=== PATIENT | male | born 1965 | race Caucasian/White ===

== ENCOUNTER 2020-07-03 09:27 | Inpatient (IN) | payer BC ==
[~2020-07-03] VITALS: Ht 190.5 cm; Wt 145.3 kg
[2020-11-17] VITALS (7 sets, daily range): BP systolic 121–150; BP diastolic 63–94; PULSE 49–76; TEMP 97.7–98.5
[2020-11-17] MEDS ORDERED: CYMBALTA 60MG60 MG PO (07:46)
[2020-11-17] MEDS ORDERED: NORVASC 10MG10 MG PO (07:46)
[2020-11-17] MEDS ORDERED: LANOXIN 0.25M0.25 MG PO (07:46)
[2020-11-17] MEDS ORDERED: COZAAR100 MG PO (07:46)
[2020-11-17] MEDS ORDERED: ASPIRIN 81M81 MG/TA2 PO (07:47)
[2020-11-17] MEDS ORDERED: THEO-DUR 3300 MG/TAB PO (07:47)
[2020-11-17] MEDS ORDERED: CELEBREX 200MG200 MG PO (07:47)
--- NOTE | 2020-11-17 08:22 | NUR ---
The patient ambulated back to [facility] independently using a steady gait and appeared to tolerate the activity well. Vital signs obtained. Consent signed. 18G IV Started in left hand with one stick, LR infusing without difficulty. Assessment completed. brought back to be at his bedside. Scrub to left knee completed. SOLANGE hose applied to right leg. Call light is within reach. Will continue to monitor the patient.
--- NOTE | 2020-11-17 13:15 | NUR ---
PT ADMITTED FROM PACU. PT IS AXOX4. PT'S VSS. PT HAS CALL LIGHT AND IS RESTING IN BED. BEDSIDE. PT STILL NUMB IN BLE. PT ABLE TO MOVE FEET SOME BUT UNABLE TO WIGGLE TOES. WILL CONTIUE TO LINDA.
--- NOTE | 2020-11-17 20:00 | NUR ---
PT AMBULATES IN HALLWAY WITH PCT AND WALKER. DOES WELL. HAS FAITH/DRSG TO LEFT KNEE, D/I. SL TO LEFT HAND, FLUSHES WELL. VOIDING WITHOUT PROBLEM.
--- NOTE | 2020-11-17 21:29 | NUR ---
MEDICATED WITH HS MEDS INCLUDING OXYCODONE 10MG PO FOR PAIN 6/10 TO LEFT KNEE.
[2020-11-17] MEDS ORDERED: PROVENTIL0.09 MG/A1 IH (21:59)
[2020-11-18] VITALS (7 sets, daily range): BP systolic 125–173; BP diastolic 70–86; PULSE 62–78; TEMP 97.9–98.5
--- NOTE | 2020-11-18 00:10 | NUR ---
SCHEDULED ES TYLENOL AND ANCEF IV GIVEN. PT REPORTS MINIMAL PAIN TO KNEE.
--- NOTE | 2020-11-18 02:15 | NUR ---
PT HUNGRY, ASSISTED TO EDGE OF BED, PROVIDED SNACK, REFUSES PAIN MEDS AT THIS TIME.
--- NOTE | 2020-11-18 06:00 | NUR ---
PT UNCOMFORTABLE, GIVEN SCHEDULED AM MEDS INCLUDING OXYCODONE 10MG PO FOR PAIN.
--- NOTE | 2020-11-18 07:00 | NUR ---
PT RESTING IN BED. PT DENIES NEEDS AT THIS TIME. WILL CONTINUE TO MONITOR.
[2020-11-18 07:07] LABS: HEMATOCRIT 37.8 % (42.0-52.0)
--- NOTE | 2020-11-18 09:23 | NUR ---
Initial visit; Patient and his thanked [employer] for looking in on him and offering encouragement and God's blessings. [employer] thanked patient for choosing our hospital and wished him a rapid and thorough recovery.
--- NOTE | 2020-11-18 12:06 | NUR ---
DRESSING CHANGED ON L KNEE.
--- NOTE | 2020-11-18 15:05 | NUR ---
SE met with patient to discuss discharge plan. Patient lives at home with his [employer] ([phone]) in [place], [place]. Patient reports he is fully independent with activities of daily living and uses no medical equipment to assit with mobility. Patient see's Dr. Carias and uses [facility] for perscriptions. Patient does not have a DPOA-HC established and does not wish to right now. SW educated patient that his is his legal DPOA-HC. Patient plans to DC home when ready. *Discharge plan: Home*
--- NOTE | 2020-11-18 20:00 | NUR ---
PATIENT IS ALERT AND ORIENTED X4. PATIENT WENT FOR WALK. STEADY GAIT, AMBULATED 200 FEET. PATIENT AT BEDSIDE. PATIENT HAS IV TO LEFT HAND AND AQUACELL DRESSING TO LEFT KNEE. PATIENT HAS ON TEDS AND SCD'S BILATERALLY. POTENTIAL DISCHARGE IN AM. PATIENT DENIES FURTHER NEEDS AT THIS TIME. HEAD TO TOE ASSESSMENT COMPLETE. CALL LIGHT WITHIN REACH.
[2020-11-19 03:31] VITALS: BP 140/65; PULSE 63; TEMP 98
--- NOTE | 2020-11-19 06:21 | NUR ---
PATIENT DID WELL THROUGHOUT NIGHT. AMBULATED ABOUT 200 FEET. GIVEN PAIN MEDS PER ORDERS. SCDS BILATERALLY AND ICE TO KNEE. WILL REPORT TO DAY SHIFT.
[2020-11-19 07:41] VITALS: BP 152/70; PULSE 69; TEMP 98.7
--- NOTE | 2020-11-19 11:15 | NUR ---
10 AM: Corbin sent DME to [facility] for a bariatric walker. Corbin faxed facesheet, PT eval,script to Pb. Corbin called them to see if they could deliver to the pt by 1:30 pm. They informed Sw that they would call me if they could before 1:30. Corbin is waiting on return call. Corbin will call them at 12:45 if i havent heard anthing from them. Corbin salinas had to call and confirm missing documents that [facility] was asking me to send face to face notes, even though i faxed over PT eval. She informed that they are not and its on there side. No other needs at this time. 11:20 pm: Corbin was informed that they did not recieved all of the documents. SW to refax over documents. They only recieved 3 pages.
[2020-11-19 12:09] VITALS: BP 156/75; PULSE 59; TEMP 98.6
--- NOTE | 2020-11-19 13:36 | NUR ---
sw sent PPW and word was recieved that the FWW will be delivered. Nothing Follows.
[2020-11-19] MEDS ORDERED: ASPI325T6 PO (14:28)
[2020-11-19] MEDS ORDERED: ULTRAM 50MG TAB50 MG PO (14:29)
[2020-11-19] MEDS ORDERED: ROXICODONE 55 MG/TAB PO (14:29)
[2020-11-19] MEDS ORDERED: SENOKOT S 50 MG1 TAB PO (14:30)
--- NOTE | 2020-11-19 14:57 | NUR ---
FWW delivered at 1:30 PM.
== END 2020-11-19 16:15 | disposition home or self-care (01) | DRG 470 ==
LOC: SURG 08-19 10:15 → INPTSU 11-17 07:11 → SURG 11-17 10:15
PROVIDERS: ADMIT Orthopaedic Surgery
PROC: 0SRC0J9 Replacement of Right Knee Joint with Synthetic Substitute, Cemented, Open Approach (ICD-10-PCS; principal; 2020-11-17 10:30)
DX: M17.12 Unilateral primary osteoarthritis, left knee (principal); Z79.82 Long term (current) use of aspirin
CPT/HCPCS: A9284; C1713; C1776; J0690; J2250; J2704; J3010; J7030; J7120

== ENCOUNTER 2021-03-23 05:44 | Inpatient (IN) | payer BC ==
[2021-03-23] VITALS (11 sets, daily range): BP systolic 112–182; BP diastolic 62–98; PULSE 57–100; TEMP 97.3–98.8
[~2021-03-23] VITALS: Ht 188 cm; Wt 143.0 kg
[~2021-03-23 05:44] MED LIST: ASPI325T6 PO; ASPIRIN 81M81 MG/TA2 PO; CELEBREX 200MG200 MG PO; COZAAR100 MG PO; CYMBALTA 60MG60 MG PO; LANOXIN 0.25M0.25 MG PO; NORVASC 10MG10 MG PO; PROVENTIL0.09 MG/A1 IH; ROXICODONE 55 MG/TAB PO; SENOKOT S 50 MG1 TAB PO; THEO-DUR 3300 MG/TAB PO; ULTRAM 50MG TAB50 MG PO
--- NOTE | 2021-03-23 05:55 | NUR ---
56 Year old male admitted to [facility] bay #6 via ambulation, no use of assistive devices. Patient present with a mild R sided limp and states it is because his knee is stiff. is in waiting room. Medications and HX completed. Physical assessment completed. Procedure verified and consent signed. First and last name + verified with patient. Vitals obatined. Patient voided prior to changing into a clean gown. Warm blanket provided. Non-slip socks are on. Greg's applied to non-operative side. Operative side scrubbed and marked. IV started in R hand on first attempt with 20G. IVF infusing without difficulty. PO medications administered. was escorted to his private bay and provided patient privacy code. Patient and his denied having any further questions or concerns. Call shook is at bedside. Side rails x2. Will continue to monitor per orders.
--- NOTE | 2021-03-23 07:00 | NUR ---
Patient was taken back to the OR at this time.
--- NOTE | 2021-03-23 11:00 | NUR ---
PATIENT ADMITED INTO ROOM 331 POST OP. ORIENTED BUT A LITTLE DROWSY. VSS. C/O MOD PAIN IN RLE AND WAS GIVEN PAIN MEDS IN PACU BEFORE COMING UP TO FLOOR. RTK DRESSING IS CD&I WITH ACEWRAP AND ICE PACK INPLACE. TEDS TO LLE. SCD'S TO BLE. POSITIVE PEDAL PULSES TO BLE. NO C/O N/V. LIQUIDS AT BEDSIDE. IV FLUIDS INFUSING VIA PUMP INTO RIGHT HAND IV. HEAD TO TOE ASSESSMENT COMPLETE. AT BEDSIDE. ORIENTED TO ROOM. CALL LIGHT IN REACH.
--- NOTE | 2021-03-23 21:37 | NUR ---
OXYCODONE 10MG PO GIVEN FOR RT KNEE PAIN.
--- NOTE | 2021-03-23 22:15 | NUR ---
ASSISTED WITH AMBULATION FROM ROOM TO NURSES DESK AND BACK, DOES WELL WITH WALKER AND SUPERVISION. RATES PAIN TO RT KNEE 10/04. IVF TO RT HAND INFUSING WITHOUT PROBLEM. BULKY DRSG TO RT KNEE, HAS SCD TO LEFT LEG. HAD TRAMADOL EARLIER FOR PAIN WITHOUT RELIEF. REFUSES MORPHINE IV.
--- NOTE | 2021-03-24 01:27 | NUR ---
REPORTS OF MODERATE PAIN 7/10 AFTER SCHEDULED TYLENOL. PRN TO GIVEN AT THIS TIME. ASSISTED PATIENT BACK INTO BED. ICE TO R KNEE. CALL LIGHT WITHIN REACH.
[2021-03-24 04:18] VITALS: BP 163/87; PULSE 91; TEMP 97.5
[2021-03-24 06:53] LABS: HEMATOCRIT 38.7 % (42.0-52.0); HEMOGLOBIN 13.6 g/dl (13.5-18.0)
[2021-03-24 07:48] VITALS: BP 156/81; PULSE 90; TEMP 98.3
[2021-03-24 11:43] VITALS: BP 152/71; PULSE 82; TEMP 97.6
[2021-03-24 15:54] VITALS: BP 135/82; PULSE 87; TEMP 97.7
--- NOTE | 2021-03-24 18:37 | NUR ---
RECEIVED CHANGE OF SHIFT REPORT FROM DAY SHIFT RN.
[2021-03-24 22:16] VITALS: BP 130/75; PULSE 79; TEMP 98.3
[2021-03-24 23:46] VITALS: BP 129/70; PULSE 77; TEMP 98.1
--- NOTE | 2021-03-25 02:46 | NUR ---
PATIENT WATCHING TV, STATING HE HAS HAS NOT BEEN ABLE TO SLEEP SINCE ADMISSION, EXPECTS TO DISCHARGE TOMORROW. UP TO AMB WITH MIN TO NO ASSIST. DENIES CHEST PAIN/SOA AND DENIES NUMBNESS/TINGLING TO EXTREMITIES. ICE TO RIGHT KNEE NEEDED. WEARS COMPRESSION STOCKINGS PER D.O.
[2021-03-25 04:07] VITALS: BP 133/79; PULSE 92; TEMP 98.6
[2021-03-25] MEDS ORDERED: ASPI325T6 PO (07:04)
[2021-03-25] MEDS ORDERED: NORCO 325 MG-7.1 TAB PO (07:04)
[2021-03-25] MEDS ORDERED: ROXICODONE 55 MG/TAB PO (07:05)
[2021-03-25] MEDS ORDERED: SENOKOT S 50 MG1 TAB PO (07:05)
--- NOTE | 2021-03-25 07:11 | NUR ---
CHANGE OF SHIFT REPORT GIVEN TO DAY SHIFT RNTAMIA.
[2021-03-25 08:34] VITALS: BP 145/76; PULSE 93; TEMP 97.9
--- NOTE | 2021-03-25 11:00 | NUR ---
PT MET CRITERIA FOR DISCHARGE, VSS. PAIN CONTROLLED, DRESSING REMAINS C,D,I. IV REMOVED WITHOUT COMPLICATIONS, CATHETER INTACT. DISCHARGE INSTRUCTIONS REVIEWED, PT VERBALIZED UNDERSTANDING. PT AWARE OF F/U APPT AND OF PRESCRIPTIONS TO AQUATIC SCIENTIST. PT AWARE OF PHYSICAL THERAPY APPT TOMORROW. PT DC TO HOME VIA WHEELCHAIR ACCOMPANIED BY SERVICE LEARNING COORDINATOR.
--- NOTE | 2021-03-25 13:37 | NUR ---
tank worker met with patient to discuss discharge planning. Patient plans to discharge home today with his spouse and states that he has all needed durable medical equipment and outpatient therapies arranged. Patient denies unmet needs at this time.
== END 2021-03-25 11:03 | disposition home or self-care (01) | DRG 470 ==
LOC: SDCO 05:44 → SURG 09:21 → INPTSU 09:21 → SURG 11:00
PROVIDERS: ADMIT Orthopaedic Surgery
PROC: 0SRC0J9 Replacement of Right Knee Joint with Synthetic Substitute, Cemented, Open Approach (ICD-10-PCS; principal; 2021-03-23 07:30)
DX: M17.11 Unilateral primary osteoarthritis, right knee (principal)
CPT/HCPCS: A9284; C1713; C1776; J0690; J1170; J2270; J2405; J7030; J7120